=== PATIENT | female | born 2000 | race Caucasian/White ===

== ENCOUNTER → 2021-03-08 | Outpatient (CLI) | payer BC | LOC: RAD 19:37 | DX: E65 Localized adiposity (principal); M41.84 Other forms of scoliosis, thoracic region | CPT/HCPCS: 72082 ==

== ENCOUNTER 2021-09-29 18:35 | Emergency (ER) | payer BC ==
[2021-09-29 19:20] LABS: HEMOGLOBIN 12.9 gm/dl (12.3-15.3); RED BLOOD COUNT 4.29 M/UL (4.00-5.10); WHITE BLOOD COUNT 6.7 K/UL (4.5-11.0)
[2021-09-29 19:45] LABS: BUN/CREATININE RATIO 12 (0-10)
== END 2021-09-29 22:04 | disposition home or self-care (01) ==
LOC: ER1 18:35
PROVIDERS: Physician Assistant
DX: R07.89 Other chest pain (principal); R06.02 Shortness of breath; R00.2 Palpitations; Z51.81 Encounter for therapeutic drug level monitoring
CPT/HCPCS: 71045; 80053; 82550; 82553; 83735; 83880; 84439; 84443; 84484; 84703; 85025; 85379; 85610; 85730; 93005; 99285